=== PATIENT | male | born 2000 | race Asian ===

== ENCOUNTER 2023-10-11 21:44 | Emergency (ER) | payer MEDICAID ==
[~2023-10-11] VITALS: Ht 167.6 cm; Wt 80.7 kg
[2023-10-11 21:44] VITALS: BP_SYST 114; PULSE 120; RESP 17; TEMP 100.2; O2SAT 95
[2023-10-11] MEDS ORDERED: PANTOPRAZOLE SODIUM 40 MG/VIAL (PROTONIX) IVP ONE (22:00)
[2023-10-11] MEDS ORDERED: NACL 0.9% 1,000 ML IV ONE (22:00)
[2023-10-11 22:09] LABS: HEMOGLOBIN 14.1 g/dL (14.0-18.0); MEAN CORPUSCULAR HEMOGLOBIN 25 pg (27-31); MEAN CORPUSCULAR HGB CONC 34 % (32-36); MEAN CORPUSCULAR VOLUME 76 fL (79.0-98.0); PLATELET COUNT (AUTO) 149 K/uL (130-430); RED BLOOD CELL COUNT(AUTO) 5.55 MIL/uL (4.2-6.2); RED CELL DISTRIBUTION WIDTH 13.3 % (9.0-15.0); WHITE BLOOD COUNT (AUTO) 5.7 K/uL (4.8-10.8)
[2023-10-11 22:20] LABS: CALCIUM 9.4 mg/dL (8.4-11.0); CREATININE 1.63 mg/dL (0.55-1.30); POTASSIUM 3.5 mmol/L (3.5-5.1)
[2023-10-11 22:24] LABS: ALBUMIN 4.4 g/dL (3.4-4.8); BILIRUBIN,DIRECT 0.2 mg/dL (0.0-0.3); TOTAL BILIRUBIN 0.8 mg/dL (0.0-1.0); TOTAL PROTEIN, SERUM 8.2 g/dL (6.4-8.3)
[2023-10-11 22:43] LABS: BAND % (MANUAL) 13 % (0-6); LYMPHOCYTES % (MANUAL) 5 % (20-46)
[2023-10-11 22:44] LABS: INFLUENZA TYPE B NEGATIVE (NEGATIVE)
[2023-10-11 22:44] LABS: BASOPHILS % (MANUAL) 0 % (0-2); EOSINOPHILS % (MANUAL) 0 % (0-7); MONOCYTES % (MANUAL) 12 % (0-11); PLATELET ESTIMATE ADEQUATE (ADEQUATE)
[2023-10-11 22:46] LABS: INFLUENZA TYPE A POSITIVE (NEGATIVE)
[2023-10-11 23:34] VITALS: BP_SYST 118; PULSE 108; O2SAT 94
[2023-10-12] MEDS ORDERED: OSEL75CA PO (00:08)
== END 2023-10-12 00:43 | disposition home or self-care (01) ==
LOC: SED 21:44
DX: J10.1 Influenza due to other identified influenza virus with other respiratory manifestations (principal); R10.9 Unspecified abdominal pain; R11.2 Nausea with vomiting, unspecified; R21 Rash and other nonspecific skin eruption; Z79.899 Other long term (current) drug therapy; Z20.822 Contact with and (suspected) exposure to COVID-19
CPT/HCPCS: 99285; 74176; 96374; 96361; 87426; 85027; 80076; 80048; 83690; 85007; 36415; 76376; 87804 ×2; C9113; J7030

== ENCOUNTER 2024-07-22 20:32 | Emergency (ER) | payer MEDICAID ==
[~2024-07-22] VITALS: Ht 170.2 cm; Wt 76.7 kg
[~2024-07-22 20:32] MED LIST: OSEL75CA PO
[2024-07-22 20:39] VITALS: BP_SYST 132; PULSE 98; RESP 20; TEMP 99; O2SAT 95
[2024-07-22 21:43] LABS: INFLUENZA TYPE A Negative (NEGATIVE); INFLUENZA TYPE B NEGATIVE (NEGATIVE)
[2024-07-22] MEDS: IPRATROPIUM/ALBUTEROL SULFATE 3 ML AMPUL.NEB (DUONEB) INH ONE (22:23)
[2024-07-22] MEDS ORDERED: IPRATROPIUM/ALBUTEROL SULFATE 3 ML AMPUL.NEB (DUONEB) INH ONE (22:30)
[2024-07-22] MEDS: KETOROLAC TROMETHAMINE 30 MG VIAL IM ONE (22:40)
[2024-07-22] MEDS: ACETAMINOPHEN 500 MG TABLET PO ONE (22:41)
[2024-07-22] MEDS: predniSONE 20 MG TABLET PO ONE (22:48)
[2024-07-22] MEDS ORDERED: PRED20TA PO (23:25)
[2024-07-22] MEDS ORDERED: ALBMDI INH (23:25)
[2024-07-22 23:35] VITALS: BP_SYST 130; PULSE 95; RESP 17; TEMP 98.7; O2SAT 95
== END 2024-07-22 23:35 | disposition home or self-care (01) ==
LOC: SED 20:32
DX: J45.901 Unspecified asthma with (acute) exacerbation (principal); B34.9 Viral infection, unspecified; F12.90 Cannabis use, unspecified, uncomplicated; Z20.822 Contact with and (suspected) exposure to COVID-19; Z71.6 Tobacco abuse counseling; Z79.52 Long term (current) use of systemic steroids; Z79.899 Other long term (current) drug therapy
CPT/HCPCS: 99284; 71045; 87426; 36415; 94640; 96372; 87804 ×2; J7512; J1885